=== PATIENT | male | born 1995 | race Caucasian/White ===

== ENCOUNTER 2018-01-01 15:59 | Emergency (ER) | payer OTHER ==
[~2018-01-01] VITALS: Ht 177.8 cm; Wt 79.4 kg
[2018-01-01 16:46] VITALS: BP 139/81
== END 2018-01-01 17:19 | disposition home or self-care (01) ==
LOC: ER 16:04
DX: H92.01 Otalgia, right ear (principal); K05.10 Chronic gingivitis, plaque induced; G89.29 Other chronic pain; K08.89 Other specified disorders of teeth and supporting structures; F99 Mental disorder, not otherwise specified; Z98.890 Other specified postprocedural states
CPT/HCPCS: 99283; A4606; Z7610

== ENCOUNTER 2022-09-12 19:30 | Emergency (ER) | payer OTHER ==
[~2022-09-12] VITALS: Ht 177.8 cm; Wt 83.9 kg
[2022-09-12 19:37] VITALS: BP 151/87
[2022-09-12] MEDS ORDERED: ARIP5TAB10 PO (19:53)
== END 2022-09-12 21:38 | disposition home or self-care (01) ==
LOC: ER 19:37
DX: S06.89AA Other specified intracranial injury with loss of consciousness status unknown, initial encounter (principal); X58.XXXA Exposure to other specified factors, initial encounter; Y93.89 Activity, other specified; Y92.89 Other specified places as the place of occurrence of the external cause; Y99.8 Other external cause status

== ENCOUNTER 2022-12-18 17:45 | Emergency (ER) | payer OTHER ==
[~2022-12-18] VITALS: Ht 172.7 cm; Wt 86.2 kg
[~2022-12-18 17:45] MED LIST: ARIP5TAB10 PO
[2022-12-18 17:53] VITALS: BP 144/78; TEMP 98.7; O2SAT 98
[2022-12-18] MEDS ORDERED: ARIP5TAB10 PO (18:32)
[2022-12-18] MEDS ORDERED: OXCA300T15 PO (18:32)
== END 2022-12-18 18:47 | disposition home or self-care (01) ==
LOC: ER 17:51
DX: S06.89AA Other specified intracranial injury with loss of consciousness status unknown, initial encounter (principal); Z76.0 Encounter for issue of repeat prescription; Z79.899 Other long term (current) drug therapy; Z98.890 Other specified postprocedural states; X58.XXXA Exposure to other specified factors, initial encounter; Y93.89 Activity, other specified; Y92.89 Other specified places as the place of occurrence of the external cause; Y99.8 Other external cause status

== ENCOUNTER 2023-09-03 10:30 | Emergency (ER) | payer MEDICAID, OTHER ==
[~2023-09-03] VITALS: Ht 177.8 cm; Wt 88.0 kg
[~2023-09-03 10:30] MED LIST changes: +OXCA300T15 PO
[2023-09-03 11:32] VITALS: BP 127/70; TEMP 98.2
[2023-09-03] MEDS ORDERED: AMOXICILLIN TRIHYDRATE 250 MG CAPSULE ONE (11:50)
[2023-09-03] MEDS ORDERED: IBUPROFEN 600 MG TABLET ONE (11:50)
[2023-09-03] MEDS: AMOXICILLIN TRIHYDRATE 500 MG CAPSULE PO ONE (11:55)
[2023-09-03] MEDS: IBUPROFEN 600 MG TABLET PO ONE (11:55)
[2023-09-03] MEDS ORDERED: AMOX500C2 PO (12:02)
[2023-09-03 12:13] VITALS: O2SAT 98
== END 2023-09-03 12:14 | disposition home or self-care (01) ==
LOC: ER 10:35
DX: K08.89 Other specified disorders of teeth and supporting structures (principal)

== ENCOUNTER 2023-11-03 19:02 | Emergency (ER) | payer MEDICAID, OTHER ==
[~2023-11-03] VITALS: Ht 172.7 cm; Wt 74.8 kg
[~2023-11-03 19:02] MED LIST changes: +AMOX500C2 PO
[2023-11-03 20:53] LABS: BASOPHILS % (AUTO) 0.4 % (0.0-2.0); EOSINOPHILS # (AUTO) 0.1 K/uL (0.0-0.7); EOSINOPHILS % (AUTO) 1.2 % (0.0-6.0); HEMATOCRIT 45 % (39-51); HEMOGLOBIN 15.2 g/dL (13.5-17.5); LYMPHOCYTES # (AUTO) 1.5 K/uL (0.8-4.8); LYMPHOCYTES % (AUTO) 18.9 % (20.0-44.0); MEAN CORPUSCULAR HEMOGLOBIN 29 PG (26.0-33.0); MEAN CORPUSCULAR HGB CONC 34 g/dl (31.0-36.0); MEAN CORPUSCULAR VOLUME 86 fL (80-96); MONOCYTES # (AUTO) 0.4 K/uL (0.1-1.30); NEUTROPHILS # (AUTO) 5.8 K/uL (1.8-8.9); NEUTROPHILS % (AUTO) 74.5 % (43.0-81.0); PLATELET COUNT (AUTO) 240 K/uL (150-450); RED BLOOD CELL COUNT(AUTO) 5.22 MIL/uL (4.5-6.0); WHITE BLOOD COUNT (AUTO) 7.8 K/uL (4.3-11.0)
[2023-11-03 21:00] LABS: CALCIUM, SERUM 9.7 mg/dL (8.5-10.1); CARBON DIOXIDE 23 mmol/L (21-32); CHLORIDE 105 mmol/L (98-107); CREATININE 0.7 mg/dL (0.6-1.3); GLUCOSE 104 mg/dL (74-106); POTASSIUM 3.6 mmol/L (3.5-5.1); SODIUM SERUM 143 mmol/L (136-145); UREA NITROGEN, BLOOD 19 mg/dL (7-18)
[2023-11-03 21:05] LABS: ALANINE AMINOTRANSFERASE 39 U/L (12-78); ALBUMIN 4.1 g/dL (3.4-5.0); ALCOHOL, BLOOD < 3 mg/dL (0-10); ALKALINE PHOSPHATASE 90 U/L (46-116); ASPARTATE AMINOTRANSFERASE 20 U/L (15-37); BILIRUBIN,DIRECT 0.2 mg/dL (0.0-0.2); BILIRUBIN,TOTAL 0.8 mg/dL (0.2-1.0); SALICYLATE 0.4 mg/dL (2.8-20.0); TOTAL PROTEIN, SERUM 7.9 g/dL (6.4-8.2)
[2023-11-03 21:06] LABS: ACETAMINOPHEN <10 ug/ml (10-30)
[2023-11-03] MEDS ORDERED: OLAN5TAB3 PO (22:29)
[2023-11-03] MEDS: OLANZAPINE 5 MG TABLET PO ONE (22:35)
== END 2023-11-03 22:30 | disposition home or self-care (01) ==
LOC: ER 19:12
DX: R46.89 Other symptoms and signs involving appearance and behavior (principal); S06.89AS Other specified intracranial injury with loss of consciousness status unknown, sequela; Z87.820 Personal history of traumatic brain injury; X58.XXXS Exposure to other specified factors, sequela
CPT/HCPCS: 36415; 80048-TC; 80076-TC; 85025-TC; G0480

== ENCOUNTER 2024-01-08 08:32 | Emergency (ER) | payer MEDICAID, OTHER ==
[~2024-01-08] VITALS: Ht 177.8 cm; Wt 86.2 kg
[2024-01-08 08:32] VITALS: BP 144/80; TEMP 98.6
[~2024-01-08 08:32] MED LIST changes: +OLAN5TAB3 PO
[2024-01-08] MEDS ORDERED: PENI500T PO (08:44)
[2024-01-08 08:49] VITALS: O2SAT 99
== END 2024-01-08 08:50 | disposition home or self-care (01) ==
LOC: ER 08:45
DX: K04.7 Periapical abscess without sinus (principal); F84.0 Autistic disorder; Z98.890 Other specified postprocedural states; Z87.820 Personal history of traumatic brain injury; Z79.899 Other long term (current) drug therapy

== ENCOUNTER 2025-01-30 21:14 | Emergency (ER) | payer MEDICAID, OTHER ==
[~2025-01-30 21:14] MED LIST changes: +PENI500T PO
== END 2025-01-31 00:46 | disposition left against medical advice (07) ==
LOC: ER 21:16
DX: Z53.21 Procedure and treatment not carried out due to patient leaving prior to being seen by health care provider (principal)